=== PATIENT | female | born 1945 | race Caucasian/White ===

== ENCOUNTER 2021-03-01 04:37 | Inpatient (IN) | payer OTHER ==
[2021-03-01] MEDS ORDERED: fentaNYL 25mcg/hr PATCH.TD72 ONE (04:59)
[2021-03-01] MEDS ORDERED: LACTATED RINGERS SOLUTION 1000 ML INFUS.BAG IV ONE (05:05)
[2021-03-01 05:09] VITALS: BMI 25.7
[2021-03-01] MEDS ORDERED: ACETAMINOPHEN 1000 MG/100 ML VIAL IVPB ONE (05:20)
[2021-03-01] MEDS ORDERED: ACETAMINOPHEN INJECTION 100 ML IVPB ONE (05:21)
[2021-03-01] MEDS ORDERED: SODIUM CHLORIDE 0.9% 500 ML INFUS.BAG IV ONE ×2 (05:38→07:01)
[2021-03-01 05:52] LABS: BASO % 0.7 % (0-2.0); EOS % 0.4 % (0-4.5); HEMATOCRIT 43.8 % (32.4-45.2); HEMOGLOBIN 15.1 GM/dL (10.7-15.3); LYMPH % 17.9 % (8-40); MCH 30.5 pg (25.7-33.7); MCHC 34.4 g/dl (32.0-36.0); MEAN CELL VOLUME 88.6 fl (80-96); MEAN PLT VOLUME 7.9 fl (7.5-11.1); MONO % 2.8 % (3.8-10.2); NEUT % 78.2 % (42.8-82.8); PLATELET COUNT 324 10^3/uL (134-434); RBC 4.95 M/mm3 (3.60-5.2); RDW 14.5 % (11.6-15.6); WHITE BLOOD COUNT 10.8 K/mm3 (4.0-10.0)
[2021-03-01 06:01] LABS: INR 0.93 (0.83-1.09); PROTHROMBIN TIME (PATIENT) 11.3 SEC (9.7-13.0)
[2021-03-01 06:04] LABS: ACTIVATED PTT 25.2 SECONDS (25.2-36.5)
[2021-03-01 06:09] LABS: CHLORIDE 105 mmol/L (98-107); SODIUM 141 mmol/L (136-145)
[2021-03-01 06:12] LABS: ALBUMIN 4.3 g/dl (3.4-5.0); ANION GAP 13 MMOL/L (8-16); CALCIUM 9.2 mg/dL (8.5-10.1); CO2 23 mmol/L (21-32)
[2021-03-01 06:13] LABS: BLOOD UREA NITROGEN 14.7 mg/dL (7-18)
[2021-03-01 06:15] LABS: CREATININE 1.3 mg/dL (0.55-1.3); GLUCOSE,RANDOM 204 mg/dL (74-106); SGOT/AST 820 U/L (15-37); SGPT/ALT 938 U/L (13-61)
[2021-03-01 06:17] LABS: BILIRUBIN,TOTAL 2.7 mg/dL (0.2-1)
[2021-03-01 06:18] LABS: ALK PHOS 197 U/L (45-117)
[2021-03-01 06:29] LABS: LACTIC ACID 2.6 mmol/L (0.4-2.0)
[2021-03-01 06:50] LABS: LIPASE > 30000 U/L (73-393)
[2021-03-01] MEDS ORDERED: PIPERACILLIN/TAZOB 4.5 GM 4.5 GM in DEXTROSE 5%-WATER 100 ML IVPB ONE (07:08)
[2021-03-01] MEDS ORDERED: morphine CARPU-JECT 2 MG/1 ML DISP.SYRIN IVPUSH ONE (07:13)
[2021-03-01 07:14] LABS: BILIRUBIN,DIRECT 1.8 mg/dL (0.0-0.2)
[2021-03-01] MEDS ORDERED: morphine SULFATE 4 MG/ML VIAL ONE (07:21)
[2021-03-01] MEDS ORDERED: PIPERACILLIN/TAZOB 4.5 GM 4.5 GM/100 ML BAG IVPB ONE (07:22)
[2021-03-01] MEDS ORDERED: LACTATED RINGERS SOLUTION 1,000 ML/1,000 ML INFUS.BAG IV SCH ×2 (08:30→09:06)
[2021-03-01 08:36] LABS: BASO % 0.2 % (0-2.0); HEMATOCRIT 38.9 % (32.4-45.2); HEMOGLOBIN 13.4 GM/dL (10.7-15.3); LYMPH % 6.1 % (8-40); MCH 30.3 pg (25.7-33.7); MCHC 34.5 g/dl (32.0-36.0); MEAN CELL VOLUME 87.8 fl (80-96); MEAN PLT VOLUME 7.5 fl (7.5-11.1); MONO % 9.2 % (3.8-10.2); NEUT % 84.5 % (42.8-82.8); PLATELET COUNT 196 10^3/uL (134-434); RBC 4.43 M/mm3 (3.60-5.2); WHITE BLOOD COUNT 10.2 K/mm3 (4.0-10.0)
[2021-03-01] MEDS ORDERED: morphine SULFATE 4 MG/ML VIAL IVPUSH PRN (08:38)
[2021-03-01] MEDS ORDERED: PIPERACILLIN/TAZOB 3.375 GM 3.375 GM in DEXTROSE 5%-WATER - 50 ML IVPB SCH ×2 (08:45→15:00)
[2021-03-01 08:59] LABS: BLOOD UREA NITROGEN 14.7 mg/dL (7-18)
[2021-03-01 09:02] LABS: CREATININE 1.1 mg/dL (0.55-1.3)
[2021-03-01 09:03] LABS: BILIRUBIN,TOTAL 2.9 mg/dL (0.2-1); TOT PROT 6.1 g/dl (6.4-8.2)
[2021-03-01 09:08] LABS: ALBUMIN 3.2 g/dl (3.4-5.0); CALCIUM 7.7 mg/dL (8.5-10.1)
[2021-03-01] MEDS: LACTATED RINGERS SOLUTION 1,000 ML/1,000 ML INFUS.BAG IV SCH ×2 (09:56→21:29)
[2021-03-01] MEDS ORDERED: KETOROLAC TROMETHAMINE 15 MG/ML VIAL IVPUSH ONE (10:41)
[2021-03-01] MEDS ORDERED: KETOROLAC TROMETHAMINE 30 MG/1 ML VIAL ONE (10:48)
[2021-03-01] MEDS ORDERED: amLODIPine BESYLATE 5 MG TABLET (FP) PO ONE (10:48)
[2021-03-01] MEDS ORDERED: HYDROmorphone HCL CARPU-JECT 2 MG/1 ML DISP.SYRIN IVPUSH PRN (11:58)
[2021-03-01] MEDS: INSULIN SLIDING SCALE (NOVOLOG) 1 VIAL SQ SCH ×3 (14:06→21:28)
[2021-03-01] MEDS ORDERED: ONDANSETRON 4 MG/2 ML VIAL ONE (14:20)
[2021-03-01] MEDS ORDERED: HYDROmorphone HCl 2 MG/ML VIAL ONE (14:20)
[2021-03-01] MEDS ORDERED: KCL 10 MEQ IVPB 10 MEQ/100 ML INFUS.BAG IVPB ONE (14:20)
[2021-03-01] MEDS: KCL 10 MEQ IVPB 10 MEQ/100 ML INFUS.BAG IVPB SCH (14:39)
[2021-03-01] MEDS: ENOXAPARIN NA (PORCINE) 40 MG/0.4 ML DISP.SYRIN SQ SCH ×2 (14:39→14:51)
[2021-03-01] MEDS ORDERED: HYDROmorphone HCL CARPU-JECT 2 MG/1 ML DISP.SYRIN IVPUSH ONE (14:44)
[2021-03-01] MEDS ORDERED: PIPERACILLIN/TAZOBACTAM 3.375 GM VIAL IVPB ONE (16:52)
[2021-03-01] MEDS ORDERED: DEXTROSE 5%-WATER - 50 ML IVPB ONE (16:53)
[2021-03-01] MEDS: PIPERACILLIN/TAZOB 3.375 GM 3.375 GM in DEXTROSE 5%-WATER - 50 ML IVPB SCH (17:28)
[2021-03-01] MEDS: HYDROmorphone HCl 2 MG/ML VIAL IVPB PRN (19:40)
[2021-03-02] MEDS: ACETAMINOPHEN 1000 MG/100 ML VIAL IVPB PRN ×2 (00:13→09:13)
[2021-03-02] MEDS ORDERED: PIPERACILLIN/TAZOBACTAM 3.375 GM VIAL IVPB ONE ×3 (01:50→17:40)
[2021-03-02] MEDS ORDERED: DEXTROSE 5%-WATER - 50 ML IVPB ONE ×3 (01:50→17:40)
[2021-03-02 01:52] LABS: EPI CELLS 19 /uL (0-25.1); HYALINE CASTS 1 /uL (0-3.1); URINE APPEARANCE CLOUDY; URINE BACTERIA 5 /uL (0-1359); URINE BILIRUBIN 1+ (NEGATIVE); URINE COLOR DK YELLOW; URINE GLUCOSE (UA) NEGATIVE (NEGATIVE); URINE KETONE 1+ (NEGATIVE); URINE LEUK ESTERASE 1+ (NEGATIVE); URINE NITRITE NEGATIVE (NEGATIVE); URINE PROTEIN 1+ (NEGATIVE); URINE RBC 53 /uL (0-23.9); URINE WBC 71 /uL (0-25.8)
[2021-03-02] MEDS: PIPERACILLIN/TAZOB 3.375 GM 3.375 GM in DEXTROSE 5%-WATER - 50 ML IVPB SCH ×3 (02:02→17:47)
[2021-03-02] MEDS: LACTATED RINGERS SOLUTION 1,000 ML/1,000 ML INFUS.BAG IV SCH ×2 (03:46→21:11)
[2021-03-02] MEDS: HYDROmorphone HCl 2 MG/ML VIAL IVPB PRN ×2 (04:12→17:47)
[2021-03-02] MEDS: INSULIN SLIDING SCALE (NOVOLOG) 1 VIAL SQ SCH ×4 (05:59→21:26)
[2021-03-02 09:05] LABS: ALBUMIN 2.9 g/dl (3.4-5.0); BASO % 0.9 % (0-2.0); HEMATOCRIT 38.6 % (32.4-45.2); LYMPH % 3.8 % (8-40); MCH 29.4 pg (25.7-33.7); MCHC 33.6 g/dl (32.0-36.0); MEAN CELL VOLUME 87.4 fl (80-96); MEAN PLT VOLUME 7.5 fl (7.5-11.1); MONO % 6.6 % (3.8-10.2); NEUT % 88.7 % (42.8-82.8); PLATELET COUNT 179 10^3/uL (134-434); RBC 4.41 M/mm3 (3.60-5.2); RDW 14.7 % (11.6-15.6); WHITE BLOOD COUNT 15.5 K/mm3 (4.0-10.0)
[2021-03-02 09:07] LABS: BILIRUBIN,DIRECT 0.6 mg/dL (0.0-0.2)
[2021-03-02 09:09] LABS: BILIRUBIN,TOTAL 1.1 mg/dL (0.2-1); TOT PROT 5.7 g/dl (6.4-8.2)
[2021-03-02] MEDS: ENOXAPARIN NA (PORCINE) 40 MG/0.4 ML DISP.SYRIN SQ SCH (10:31)
[2021-03-02] MEDS ORDERED: ACETAMINOPHEN INJECTION 100 ML IVPB ONE (13:14)
[2021-03-02] MEDS ORDERED: IOHEXOL 300 MG/ML INFUS..BTL IV ONE (14:02)
[2021-03-02] MEDS ORDERED: ONDANSETRON 4 MG/2 ML VIAL IVPUSH PRN (14:57)
[2021-03-03] MEDS ORDERED: DEXTROSE 5%-WATER - 50 ML IVPB ONE ×3 (01:23→16:58)
[2021-03-03] MEDS ORDERED: PIPERACILLIN/TAZOBACTAM 3.375 GM VIAL IVPB ONE ×3 (01:23→16:58)
[2021-03-03] MEDS: HYDROmorphone HCl 2 MG/ML VIAL IVPB PRN ×3 (01:32→21:29)
[2021-03-03] MEDS: PIPERACILLIN/TAZOB 3.375 GM 3.375 GM in DEXTROSE 5%-WATER - 50 ML IVPB SCH ×3 (02:10→17:00)
[2021-03-03] MEDS: LACTATED RINGERS SOLUTION 1,000 ML/1,000 ML INFUS.BAG IV SCH ×4 (03:31→17:01)
[2021-03-03] MEDS ORDERED: LACTATED RINGERS SOLUTION 1,000 ML/1,000 ML INFUS.BAG IV SCH (06:00)
[2021-03-03] MEDS: INSULIN SLIDING SCALE (NOVOLOG) 1 VIAL SQ SCH ×4 (06:41→21:52)
[2021-03-03] MEDS ORDERED: ACETAMINOPHEN 1000 MG/100 ML VIAL IVPB ONE (09:00)
[2021-03-03 09:05] LABS: BASO % 0.2 % (0-2.0); HEMATOCRIT 36.1 % (32.4-45.2); HEMOGLOBIN 12.3 GM/dL (10.7-15.3); LYMPH % 4.2 % (8-40); MCH 29.8 pg (25.7-33.7); MCHC 33.9 g/dl (32.0-36.0); MEAN CELL VOLUME 87.9 fl (80-96); MEAN PLT VOLUME 8.2 fl (7.5-11.1); MONO % 7.7 % (3.8-10.2); NEUT % 87.9 % (42.8-82.8); PLATELET COUNT 189 10^3/uL (134-434); RBC 4.11 M/mm3 (3.60-5.2); RDW 14.7 % (11.6-15.6); WHITE BLOOD COUNT 16.5 K/mm3 (4.0-10.0)
[2021-03-03 09:45] LABS: BLOOD UREA NITROGEN 15.1 mg/dL (7-18)
[2021-03-03 09:47] LABS: ALBUMIN 2.4 g/dl (3.4-5.0)
[2021-03-03 09:50] LABS: BILIRUBIN,DIRECT 0.5 mg/dL (0.0-0.2); CREATININE 0.6 mg/dL (0.55-1.3)
[2021-03-03 09:51] LABS: BILIRUBIN,TOTAL 1.2 mg/dL (0.2-1); TOT PROT 5.2 g/dl (6.4-8.2)
[2021-03-03] MEDS: FAMOTIDINE 20 MG/50 ML IVPB 20 MG/50 ML MG IVPB SCH (09:52)
[2021-03-04] MEDS ORDERED: PIPERACILLIN/TAZOBACTAM 3.375 GM VIAL IVPB ONE ×3 (00:20→16:56)
[2021-03-04] MEDS ORDERED: DEXTROSE 5%-WATER - 50 ML IVPB ONE ×3 (00:20→16:56)
[2021-03-04] MEDS: PIPERACILLIN/TAZOB 3.375 GM 3.375 GM in DEXTROSE 5%-WATER - 50 ML IVPB SCH ×3 (01:04→17:07)
[2021-03-04] MEDS: LACTATED RINGERS SOLUTION 1,000 ML/1,000 ML INFUS.BAG IV SCH ×2 (01:05→07:36)
[2021-03-04] MEDS: HYDROmorphone HCl 2 MG/ML VIAL IVPB PRN ×3 (02:59→15:16)
[2021-03-04] MEDS: INSULIN SLIDING SCALE (NOVOLOG) 1 VIAL SQ SCH ×4 (06:10→21:23)
[2021-03-04] MEDS: KCL 10 MEQ IVPB 10 MEQ/100 ML INFUS.BAG IVPB SCH (07:36)
[2021-03-04 08:06] LABS: BASO % 0.1 % (0-2.0); HEMATOCRIT 34.5 % (32.4-45.2); HEMOGLOBIN 11.7 GM/dL (10.7-15.3); LYMPH % 4.7 % (8-40); MCH 29.8 pg (25.7-33.7); MCHC 33.8 g/dl (32.0-36.0); MEAN PLT VOLUME 7.8 fl (7.5-11.1); MONO % 7.5 % (3.8-10.2); NEUT % 87.7 % (42.8-82.8); PLATELET COUNT 191 10^3/uL (134-434); RBC 3.92 M/mm3 (3.60-5.2); RDW 14.5 % (11.6-15.6); WHITE BLOOD COUNT 12.9 K/mm3 (4.0-10.0)
[2021-03-04 08:33] LABS: ALBUMIN 2.3 g/dl (3.4-5.0); BLOOD UREA NITROGEN 8.7 mg/dL (7-18); CALCIUM 7.1 mg/dL (8.5-10.1)
[2021-03-04 08:36] LABS: CREATININE 0.5 mg/dL (0.55-1.3)
[2021-03-04 08:37] LABS: BILIRUBIN,TOTAL 1.2 mg/dL (0.2-1)
[2021-03-04 08:38] LABS: TOT PROT 5.2 g/dl (6.4-8.2)
[2021-03-04] MEDS: LIDOCAINE 5% TOPICAL PATCH TP SCH (09:23)
[2021-03-04] MEDS: FAMOTIDINE 20 MG/50 ML IVPB 20 MG/50 ML MG IVPB SCH (09:23)
[2021-03-04] MEDS ORDERED: LACTATED RINGERS SOLUTION 1,000 ML/1,000 ML INFUS.BAG IV SCH (10:20)
[2021-03-04] MEDS ORDERED: RAMIPRIL 5 MG CAPSULE PO ONE (16:30)
[2021-03-04] MEDS ORDERED: INSULIN (NOVOLOG) ASPART 100 UNITS/ML 10ML VIAL ONE (20:59)
[2021-03-04] MEDS: ATORVASTATIN CA 10 MG TABLET (FP) PO SCH (21:24)
[2021-03-04] MEDS: LIDOCAINE PATCH REMOVAL MC SCH (21:24)
[2021-03-04] MEDS: MELATONIN 1 MG TABLET PO SCH (21:25)
[2021-03-05] MEDS ORDERED: DEXTROSE 5%-WATER - 50 ML IVPB ONE ×3 (00:29→17:15)
[2021-03-05] MEDS ORDERED: PIPERACILLIN/TAZOBACTAM 3.375 GM VIAL IVPB ONE ×3 (00:29→17:15)
[2021-03-05] MEDS: PIPERACILLIN/TAZOB 3.375 GM 3.375 GM in DEXTROSE 5%-WATER - 50 ML IVPB SCH ×3 (01:08→17:21)
[2021-03-05] MEDS: HYDROmorphone HCl 2 MG/ML VIAL IVPB PRN (03:01)
[2021-03-05] MEDS: INSULIN SLIDING SCALE (NOVOLOG) 1 VIAL SQ SCH ×4 (06:32→21:36)
[2021-03-05] MEDS: LEVOTHYROXINE NA 50 MCG TABLET (FP) PO SCH (06:33)
[2021-03-05 08:51] LABS: BASO % 0.4 % (0-2.0); EOS % 0.2 % (0-4.5); HEMATOCRIT 33.3 % (32.4-45.2); HEMOGLOBIN 11.4 GM/dL (10.7-15.3); LYMPH % 5.8 % (8-40); MCH 29.2 pg (25.7-33.7); MCHC 34.2 g/dl (32.0-36.0); MEAN CELL VOLUME 85.4 fl (80-96); MEAN PLT VOLUME 7.3 fl (7.5-11.1); MONO % 10.3 % (3.8-10.2); NEUT % 83.3 % (42.8-82.8); PLATELET COUNT 222 10^3/uL (134-434); RDW 14.3 % (11.6-15.6); WHITE BLOOD COUNT 13.5 K/mm3 (4.0-10.0)
[2021-03-05 09:28] LABS: CALCIUM 7.7 mg/dL (8.5-10.1)
[2021-03-05 09:29] LABS: ALBUMIN 2.2 g/dl (3.4-5.0); BLOOD UREA NITROGEN 6.5 mg/dL (7-18)
[2021-03-05 09:32] LABS: CREATININE 0.5 mg/dL (0.55-1.3)
[2021-03-05 09:33] LABS: BILIRUBIN,TOTAL 1.1 mg/dL (0.2-1); TOT PROT 5.5 g/dl (6.4-8.2)
[2021-03-05] MEDS ORDERED: PT OWN MED DRAWER 7, Y5N ONE (11:22)
[2021-03-05] MEDS: HYDROXYCHLOROQUINE SO4 200 MG TABLET (FP) PO SCH (11:25)
[2021-03-05] MEDS: FAMOTIDINE 20 MG/50 ML IVPB 20 MG/50 ML MG IVPB SCH (11:25)
[2021-03-05] MEDS: LIDOCAINE 5% TOPICAL PATCH TP SCH (11:25)
[2021-03-05] MEDS: DULoxetine HCL 20 MG CAPSULE.DR PO SCH (11:25)
[2021-03-05] MEDS: RAMIPRIL 5 MG CAPSULE PO SCH (11:25)
[2021-03-05 11:53] LABS: MAGNESIUM 1.4 mg/dL (1.8-2.4)
[2021-03-05 11:54] LABS: PHOSPHOROUS 1.8 mg/dL (2.5-4.9)
[2021-03-05] MEDS: ATORVASTATIN CA 10 MG TABLET (FP) PO SCH (21:32)
[2021-03-05] MEDS: LIDOCAINE PATCH REMOVAL MC SCH (21:32)
[2021-03-05] MEDS: MELATONIN 1 MG TABLET PO SCH (21:32)
[2021-03-06] MEDS ORDERED: amLODIPine BESYLATE 5 MG TABLET (FP) PO ONE (00:19)
[2021-03-06] MEDS ORDERED: ACETAMINOPHEN 325 MG TABLET (FP) PO PRN (01:26)
[2021-03-06] MEDS ORDERED: PIPERACILLIN/TAZOBACTAM 3.375 GM VIAL IVPB ONE ×3 (02:22→17:20)
[2021-03-06] MEDS ORDERED: DEXTROSE 5%-WATER - 50 ML IVPB ONE ×3 (02:22→17:20)
[2021-03-06] MEDS: PIPERACILLIN/TAZOB 3.375 GM 3.375 GM in DEXTROSE 5%-WATER - 50 ML IVPB SCH ×3 (02:43→17:21)
[2021-03-06] MEDS: INSULIN SLIDING SCALE (NOVOLOG) 1 VIAL SQ SCH ×4 (06:31→21:16)
[2021-03-06] MEDS: LEVOTHYROXINE NA 50 MCG TABLET (FP) PO SCH (06:31)
[2021-03-06] MEDS ORDERED: PT OWN MED DRAWER 7, Y5N ONE (09:24)
[2021-03-06] MEDS: FAMOTIDINE 20 MG/50 ML IVPB 20 MG/50 ML MG IVPB SCH (09:26)
[2021-03-06] MEDS: RAMIPRIL 5 MG CAPSULE PO SCH (09:26)
[2021-03-06] MEDS: DULoxetine HCL 20 MG CAPSULE.DR PO SCH (09:26)
[2021-03-06] MEDS: LIDOCAINE 5% TOPICAL PATCH TP SCH (09:26)
[2021-03-06] MEDS: HYDROXYCHLOROQUINE SO4 200 MG TABLET (FP) PO SCH (09:26)
[2021-03-06] MEDS: ENOXAPARIN NA (PORCINE) 40 MG/0.4 ML DISP.SYRIN SQ SCH (09:35)
[2021-03-06] MEDS ORDERED: ACETAMINOPHEN WITH CODEINE 300MG/30MG TABLET PO PRN (09:42)
[2021-03-06] MEDS ORDERED: morphine SULFATE 4 MG/ML VIAL IVPUSH PRN (09:44)
[2021-03-06] MEDS: ACETAMINOPHEN 325 MG TABLET (FP) PO PRN (15:45)
[2021-03-06] MEDS: MELATONIN 1 MG TABLET PO SCH (21:08)
[2021-03-06] MEDS: ATORVASTATIN CA 10 MG TABLET (FP) PO SCH (21:08)
[2021-03-06] MEDS: LIDOCAINE PATCH REMOVAL MC SCH (21:08)
[2021-03-07] MEDS ORDERED: DEXTROSE 5%-WATER - 50 ML IVPB ONE ×3 (01:37→16:52)
[2021-03-07] MEDS ORDERED: PIPERACILLIN/TAZOBACTAM 3.375 GM VIAL IVPB ONE ×3 (01:37→16:51)
[2021-03-07] MEDS: PIPERACILLIN/TAZOB 3.375 GM 3.375 GM in DEXTROSE 5%-WATER - 50 ML IVPB SCH ×3 (01:43→17:06)
[2021-03-07] MEDS: INSULIN SLIDING SCALE (NOVOLOG) 1 VIAL SQ SCH ×4 (06:02→21:34)
[2021-03-07] MEDS: LEVOTHYROXINE NA 50 MCG TABLET (FP) PO SCH (06:05)
[2021-03-07] MEDS: ACETAMINOPHEN 325 MG TABLET (FP) PO PRN ×2 (08:20→21:37)
[2021-03-07 08:35] LABS: HEMATOCRIT 34.9 % (32.4-45.2); HEMOGLOBIN 12.3 GM/dL (10.7-15.3); MCH 29.7 pg (25.7-33.7); MCHC 35.3 g/dl (32.0-36.0); MEAN PLT VOLUME 7.6 fl (7.5-11.1); PLATELET COUNT 273 10^3/uL (134-434); RBC 4.16 M/mm3 (3.60-5.2); RDW 14.3 % (11.6-15.6); WHITE BLOOD COUNT 20.5 K/mm3 (4.0-10.0)
[2021-03-07 08:45] LABS: CHLORIDE 98 mmol/L (98-107); SODIUM 135 mmol/L (136-145)
[2021-03-07 09:05] LABS: ALBUMIN 2.3 g/dl (3.4-5.0); BLOOD UREA NITROGEN 9.5 mg/dL (7-18); CO2 23 mmol/L (21-32); GLUCOSE,RANDOM 83 mg/dL (74-106); LIPASE 253 U/L (73-393)
[2021-03-07 09:06] LABS: SGPT/ALT 92 U/L (13-61)
[2021-03-07 09:07] LABS: CREATININE 0.5 mg/dL (0.55-1.3); SGOT/AST 27 U/L (15-37)
[2021-03-07 09:09] LABS: BILIRUBIN,TOTAL 1.1 mg/dL (0.2-1); TOT PROT 6.2 g/dl (6.4-8.2)
[2021-03-07 09:10] LABS: ALK PHOS 102 U/L (45-117)
[2021-03-07 09:13] LABS: ANION GAP 14 MMOL/L (8-16)
[2021-03-07] MEDS ORDERED: PT OWN MED DRAWER 7, Y5N ONE (09:31)
[2021-03-07] MEDS ORDERED: POTASSIUM CHLORIDE ORAL LIQUID 20 MEQ/15 ML PO ONE (09:32)
[2021-03-07] MEDS ORDERED: MAGNESIUM 1GM/D5W - 1 GM/100 ML IVPB IVPB ONE (09:36)
[2021-03-07] MEDS: FAMOTIDINE 20 MG/50 ML IVPB 20 MG/50 ML MG IVPB SCH (09:45)
[2021-03-07] MEDS: RAMIPRIL 5 MG CAPSULE PO SCH (09:46)
[2021-03-07] MEDS: LIDOCAINE 5% TOPICAL PATCH TP SCH (09:46)
[2021-03-07] MEDS: DULoxetine HCL 20 MG CAPSULE.DR PO SCH (09:46)
[2021-03-07] MEDS: ENOXAPARIN NA (PORCINE) 40 MG/0.4 ML DISP.SYRIN SQ SCH (09:47)
[2021-03-07] MEDS: HYDROXYCHLOROQUINE SO4 200 MG TABLET (FP) PO SCH (09:51)
[2021-03-07] MEDS: KCL 10 MEQ IVPB 10 MEQ/100 ML INFUS.BAG IVPB SCH ×3 (10:31→14:42)
[2021-03-07 11:05] LABS: ANISOCYTOSIS 0; HELMET CELLS 0; HOWELL-JOLLY BODIES 0; MACROCYTOSIS 0; OVALOCYTE 0; PLATELET ESTIMATE NORMAL; ROULEAU 0; SICKELED CELLS 0; TARGET CELLS 0; TEAR DROP CELLS 0; TOXIC GRANULATION 0
[2021-03-07] MEDS: DEXTROSE 5%-NORMAL SALINE 1,000 ML IV SCH (11:07)
[2021-03-07] MEDS ORDERED: PANTOPRAZOLE SODIUM 40 MG VIAL IVPUSH ONE (16:25)
[2021-03-07 16:43] LABS: ANION GAP 9 MMOL/L (8-16); BLOOD UREA NITROGEN 9.6 mg/dL (7-18); CALCIUM 7.4 mg/dL (8.5-10.1); CHLORIDE 106 mmol/L (98-107); CO2 23 mmol/L (21-32); SODIUM 137 mmol/L (136-145)
[2021-03-07 16:45] LABS: CREATININE 0.5 mg/dL (0.55-1.3)
[2021-03-07 16:46] LABS: PHOSPHOROUS 2.5 mg/dL (2.5-4.9)
[2021-03-07 16:49] LABS: GLUCOSE,RANDOM 108 mg/dL (74-106)
[2021-03-07] MEDS: LIDOCAINE PATCH REMOVAL MC SCH (21:34)
[2021-03-07] MEDS: MELATONIN 1 MG TABLET PO SCH (21:36)
[2021-03-07] MEDS: ATORVASTATIN CA 10 MG TABLET (FP) PO SCH (21:36)
[2021-03-08] MEDS ORDERED: PIPERACILLIN/TAZOBACTAM 3.375 GM VIAL IVPB ONE ×2 (01:05→09:07)
[2021-03-08] MEDS ORDERED: DEXTROSE 5%-WATER - 50 ML IVPB ONE ×2 (01:05→09:07)
[2021-03-08] MEDS: PIPERACILLIN/TAZOB 3.375 GM 3.375 GM in DEXTROSE 5%-WATER - 50 ML IVPB SCH ×3 (01:11→17:25)
[2021-03-08] MEDS: ACETAMINOPHEN 325 MG TABLET (FP) PO PRN ×2 (05:59→14:12)
[2021-03-08] MEDS: LEVOTHYROXINE NA 50 MCG TABLET (FP) PO SCH (06:03)
[2021-03-08] MEDS: INSULIN SLIDING SCALE (NOVOLOG) 1 VIAL SQ SCH ×4 (06:03→21:01)
[2021-03-08] MEDS: DEXTROSE 5%-NORMAL SALINE 1,000 ML IV SCH (06:29)
[2021-03-08] MEDS ORDERED: PT OWN MED DRAWER 7, Y5N ONE (09:07)
[2021-03-08] MEDS: ENOXAPARIN NA (PORCINE) 40 MG/0.4 ML DISP.SYRIN SQ SCH (09:12)
[2021-03-08] MEDS: DULoxetine HCL 20 MG CAPSULE.DR PO SCH (09:12)
[2021-03-08] MEDS: HYDROXYCHLOROQUINE SO4 200 MG TABLET (FP) PO SCH (09:12)
[2021-03-08] MEDS: RAMIPRIL 5 MG CAPSULE PO SCH (09:12)
[2021-03-08] MEDS: LIDOCAINE 5% TOPICAL PATCH TP SCH (09:14)
[2021-03-08 09:54] LABS: HEMATOCRIT 29.4 % (32.4-45.2); HEMOGLOBIN 10.5 GM/dL (10.7-15.3); MCH 29.7 pg (25.7-33.7); MCHC 35.5 g/dl (32.0-36.0); MEAN CELL VOLUME 83.6 fl (80-96); MEAN PLT VOLUME 7.7 fl (7.5-11.1); PLATELET COUNT 226 10^3/uL (134-434); RBC 3.52 M/mm3 (3.60-5.2); RDW 14.2 % (11.6-15.6); WHITE BLOOD COUNT 17.9 K/mm3 (4.0-10.0)
[2021-03-08] MEDS: D5-1/2NS+20 MEQ KCL - 20 MEQ/1,000 ML INFUS.BAG IV SCH ×2 (10:03→10:13)
[2021-03-08 10:08] LABS: CALCIUM 7.2 mg/dL (8.5-10.1)
[2021-03-08 10:13] LABS: BILIRUBIN,TOTAL 0.6 mg/dL (0.2-1); CREATININE 0.5 mg/dL (0.55-1.3); TOT PROT 5.1 g/dl (6.4-8.2)
[2021-03-08 10:17] LABS: ALBUMIN 1.8 g/dl (3.4-5.0)
[2021-03-08 12:34] LABS: ANISOCYTOSIS 1+; MACROCYTOSIS 1+; PLATELET ESTIMATE NORMAL
[2021-03-08] MEDS: MELATONIN 1 MG TABLET PO SCH (21:00)
[2021-03-08] MEDS: ATORVASTATIN CA 10 MG TABLET (FP) PO SCH (21:01)
[2021-03-08] MEDS: LIDOCAINE PATCH REMOVAL MC SCH (21:01)
[2021-03-09] MEDS ORDERED: DEXTROSE 5%-WATER - 50 ML IVPB ONE ×3 (01:26→17:29)
[2021-03-09] MEDS ORDERED: PIPERACILLIN/TAZOBACTAM 3.375 GM VIAL IVPB ONE ×3 (01:26→17:29)
[2021-03-09] MEDS: PIPERACILLIN/TAZOB 3.375 GM 3.375 GM in DEXTROSE 5%-WATER - 50 ML IVPB SCH ×3 (01:27→17:33)
[2021-03-09] MEDS: ACETAMINOPHEN 325 MG TABLET (FP) PO PRN ×2 (05:26→20:16)
[2021-03-09] MEDS: D5-1/2NS+20 MEQ KCL - 20 MEQ/1,000 ML INFUS.BAG IV SCH (05:30)
[2021-03-09] MEDS: INSULIN SLIDING SCALE (NOVOLOG) 1 VIAL SQ SCH ×4 (06:20→21:56)
[2021-03-09] MEDS: LEVOTHYROXINE NA 50 MCG TABLET (FP) PO SCH (06:20)
[2021-03-09 09:10] LABS: HEMOGLOBIN 10.6 GM/dL (10.7-15.3); MCH 29.7 pg (25.7-33.7); MCHC 35.2 g/dl (32.0-36.0); MEAN CELL VOLUME 84.3 fl (80-96); MEAN PLT VOLUME 7.9 fl (7.5-11.1); PLATELET COUNT 250 10^3/uL (134-434); RBC 3.56 M/mm3 (3.60-5.2); RDW 14.3 % (11.6-15.6); WHITE BLOOD COUNT 20.3 K/mm3 (4.0-10.0)
[2021-03-09] MEDS ORDERED: PT OWN MED DRAWER 7, Y5N ONE (09:29)
[2021-03-09] MEDS: LIDOCAINE 5% TOPICAL PATCH TP SCH (09:33)
[2021-03-09] MEDS: DULoxetine HCL 20 MG CAPSULE.DR PO SCH (09:33)
[2021-03-09] MEDS: amLODIPine BESYLATE 5 MG TABLET (FP) PO SCH (09:33)
[2021-03-09] MEDS: ENOXAPARIN NA (PORCINE) 40 MG/0.4 ML DISP.SYRIN SQ SCH (09:33)
[2021-03-09] MEDS: RAMIPRIL 5 MG CAPSULE PO SCH (09:33)
[2021-03-09] MEDS: HYDROXYCHLOROQUINE SO4 200 MG TABLET (FP) PO SCH (09:34)
[2021-03-09 09:45] LABS: BILIRUBIN,TOTAL 0.6 mg/dL (0.2-1); TOT PROT 5.2 g/dl (6.4-8.2)
[2021-03-09 09:46] LABS: ALBUMIN 1.8 g/dl (3.4-5.0)
[2021-03-09 09:47] LABS: BLOOD UREA NITROGEN 9.3 mg/dL (7-18)
[2021-03-09 09:49] LABS: CREATININE 0.5 mg/dL (0.55-1.3)
[2021-03-09 09:51] LABS: CALCIUM 7.7 mg/dL (8.5-10.1)
[2021-03-09 09:52] LABS: MAGNESIUM 1.4 mg/dL (1.8-2.4)
[2021-03-09] MEDS ORDERED: MAGNESIUM SULFATE IN WATER 2 GM/50 ML IVPB IVPB ONE (11:33)
[2021-03-09 11:57] LABS: ANISOCYTOSIS 0; MACROCYTOSIS 0; PLATELET ESTIMATE NORMAL
[2021-03-09] MEDS ORDERED: POTASSIUM CHLORIDE ORAL LIQUID 20 MEQ/15 ML PO ONE (13:40)
[2021-03-09] MEDS ORDERED: LACTATED RINGERS SOLUTION 1,000 ML/1,000 ML INFUS.BAG IV SCH (17:00)
[2021-03-09] MEDS ORDERED: AMINO ACIDS 4.25%/D5W 1,000 ML IV SCH (20:30)
[2021-03-09] MEDS: MELATONIN 1 MG TABLET PO SCH (21:55)
[2021-03-09] MEDS: ATORVASTATIN CA 10 MG TABLET (FP) PO SCH (21:55)
[2021-03-09] MEDS: LIDOCAINE PATCH REMOVAL MC SCH (21:55)
[2021-03-10] MEDS ORDERED: PIPERACILLIN/TAZOBACTAM 3.375 GM VIAL IVPB ONE ×2 (02:14→09:20)
[2021-03-10] MEDS ORDERED: DEXTROSE 5%-WATER - 50 ML IVPB ONE ×2 (02:14→09:21)
[2021-03-10] MEDS: PIPERACILLIN/TAZOB 3.375 GM 3.375 GM in DEXTROSE 5%-WATER - 50 ML IVPB SCH ×2 (02:18→09:30)
[2021-03-10] MEDS: amLODIPine BESYLATE 5 MG TABLET (FP) PO SCH ×2 (06:18→09:32)
[2021-03-10] MEDS: LEVOTHYROXINE NA 50 MCG TABLET (FP) PO SCH (06:18)
[2021-03-10] MEDS: INSULIN SLIDING SCALE (NOVOLOG) 1 VIAL SQ SCH ×2 (06:24→11:28)
[2021-03-10] MEDS ORDERED: PT OWN MED DRAWER 7, Y5N ONE (09:21)
[2021-03-10] MEDS: LIDOCAINE 5% TOPICAL PATCH TP SCH (09:29)
[2021-03-10] MEDS: RAMIPRIL 5 MG CAPSULE PO SCH (09:30)
[2021-03-10] MEDS: DULoxetine HCL 20 MG CAPSULE.DR PO SCH (09:31)
[2021-03-10] MEDS: ENOXAPARIN NA (PORCINE) 40 MG/0.4 ML DISP.SYRIN SQ SCH (09:32)
[2021-03-10] MEDS: HYDROXYCHLOROQUINE SO4 200 MG TABLET (FP) PO SCH (09:32)
[2021-03-10] MEDS ORDERED: PANTOPRAZOLE SODIUM 40 MG VIAL IVPUSH SCH (10:00)
[2021-03-10 12:52] VITALS: BP 151/71; PULSE 96; TEMP 99.1
[2021-03-10] MEDS ORDERED: MEROPENEM 1 GM in DEXTROSE 5%-WATER 100 ML IVPB SCH (13:00)
== END 2021-03-10 14:05 | disposition short-term general hospital (02) | DRG 439 ==
LOC: JER 04:37 → JERBED 07:36 → J6S 15:27
PROVIDERS: ATTEND Internal Medicine
PROC: BF14YZZ Fluoroscopy of Gallbladder, Bile Ducts and Pancreatic Ducts using Other Contrast (ICD-10-PCS; 2021-03-02)
PROC: 0FC98ZZ Extirpation of Matter from Common Bile Duct, Via Natural or Artificial Opening Endoscopic (ICD-10-PCS; principal; 2021-03-02 13:30)
DX: K85.10 Biliary acute pancreatitis without necrosis or infection (principal); K83.09 Other cholangitis; J98.11 Atelectasis; J90 Pleural effusion, not elsewhere classified; K21.9 Gastro-esophageal reflux disease without esophagitis; I10 Essential (primary) hypertension; E78.5 Hyperlipidemia, unspecified; M06.9 Rheumatoid arthritis, unspecified; R11.2 Nausea with vomiting, unspecified; K86.89 Other specified diseases of pancreas; R73.9 Hyperglycemia, unspecified; R94.31 Abnormal electrocardiogram [ECG] [EKG]; E87.6 Hypokalemia; K80.50 Calculus of bile duct without cholangitis or cholecystitis without obstruction; R14.0 Abdominal distension (gaseous); D72.829 Elevated white blood cell count, unspecified; E83.42 Hypomagnesemia
CPT/HCPCS: 36415; 71045-TC-FY; 71046-TC-FY; 74019-TC-FY; 74177-TC; 74181-TC; 80048; 80053; 80076; 80307; 81003; 82150; 82248; 82550; 82553; 82962; 83036; 83605; 83690; 83735; 84100; 84478; 84484; 85025; 85610; 85730; 86140; 87040; 93005; 93010; 94010; 99285-25; C9803; J0131; Q9967; U0003; U0005

== ENCOUNTER 2024-06-01 10:50 | Emergency (ER) | payer OTHER ==
[2024-06-01 11:27] VITALS: RESP 18; TEMP 97.3; BMI 24.7
[2024-06-01 11:44] LABS: HEMATOCRIT 42.6 % (32.4-45.2); HEMOGLOBIN 14.7 G/dL (10.7-15.3); MCH 30.9 pg (25.7-33.7); MCHC 34.6 g/dl (32.0-36.0); MEAN CELL VOLUME 89.5 fl (80-96); MEAN PLT VOLUME 7.5 fl (7.5-11.1); PLATELET COUNT 272.9 10^3/uL (134-434); RBC 4.76 10^6/uL (3.60-5.2); RDW 14.1 % (11.6-15.6); WHITE BLOOD COUNT 7.4 10^3/uL (4.0-10.8)
[2024-06-01] MEDS ORDERED: METOCLOPRAMIDE HCL INJECTION 10 MG/2 ML VIAL ONE (11:49)
[2024-06-01] MEDS ORDERED: ACETAMINOPHEN INJECTION 100 ML ONE (11:49)
[2024-06-01] MEDS ORDERED: MECLIZINE HCL 25 MG TABLET (FP) ONE (11:49)
[2024-06-01] MEDS ORDERED: diazePAM 2 MG TABLET ONE (11:49)
[2024-06-01] MEDS: SODIUM CHLORIDE 0.9% 500 ML INFUS.BAG IV ONE (11:50)
[2024-06-01] MEDS ORDERED: LIDOCAINE 5% TOPICAL PATCH ONE (11:50)
[2024-06-01] MEDS: diazePAM 2 MG TABLET PO ONE (11:55)
[2024-06-01] MEDS: ACETAMINOPHEN 1000 MG/100 ML BAG IVPB ONE (12:00)
[2024-06-01] MEDS: LIDOCAINE 5% TOPICAL PATCH TP ONE (12:02)
[2024-06-01] MEDS: MECLIZINE HCL 25 MG TABLET (FP) PO ONE (12:02)
[2024-06-01 12:16] LABS: ALBUMIN 4.3 g/dl (3.4-5.0); BILIRUBIN,TOTAL 1.5 mg/dl (0.2-1); CALCIUM 9.6 mg/dl (8.5-10.1); CREATININE 0.9 mg/dl (0.6-1.3); POTASSIUM 4.1 mmol/L (3.5-5.1); TOT PROT 6.1 g/dl (6.4-8.2)
[2024-06-01] MEDS: METOCLOPRAMIDE HCL INJECTION 10 MG/2 ML VIAL IVPB ONE (12:25)
[2024-06-01 14:00] VITALS: BP 112/58; PULSE 87
[2024-06-01] MEDS ORDERED: LIDOCAINE PATCH REMOVAL MC SCH (22:00)
== END 2024-06-01 14:00 | disposition home or self-care (01) ==
LOC: FER 10:50
PROC: 3E033NZ Introduction of Analgesics, Hypnotics, Sedatives into Peripheral Vein, Percutaneous Approach (ICD-10-PCS; principal; 2024-06-01)
PROC: 3E033GC Introduction of Other Therapeutic Substance into Peripheral Vein, Percutaneous Approach (ICD-10-PCS; 2024-06-01)
DX: R42 Dizziness and giddiness (principal); E86.0 Dehydration; M54.2 Cervicalgia; R06.02 Shortness of breath; R20.0 Anesthesia of skin; R20.2 Paresthesia of skin; R45.1 Restlessness and agitation; G47.00 Insomnia, unspecified; R63.0 Anorexia
CPT/HCPCS: 36415; 70450-TC; 71045-TC-FY; 80053; 81003; 81015; 83735; 84484; 85025; 87086; 93005; 99285-25; J0131